=== PATIENT | male | born 1995 | race Caucasian/White ===

== ENCOUNTER 2020-11-05 05:18 | Emergency (ER) | payer MEDICAID, OTHER ==
[~2020-11-05] VITALS: Ht 170.2 cm; Wt 63.5 kg
--- NOTE | 2020-11-05 05:24 | NUR ---
PT AMBULATED TO ER WITH C/O BODYACHES, SORETHROAT, AND FEVER WITH NAUSA X 2 DAYS. PT A/O X4, NO SOB OR LABORED BREATHING. DENIES CP/PRESSURE.
--- NOTE | 2020-11-05 05:38 | NUR ---
DR. PARKER AT BEDSIDE, MSE IN PROGRESS.
--- NOTE | 2020-11-05 06:51 | NUR ---
Patient discharged to home in stable condition. A/O x4, denies any pain/discomfort upon discharge. Written and verbal after care instructions given. Patient verbalizes understanding of instructions. Stressed follow up or return to ER for worsening s/s. Steady gait.
[2020-11-05 06:52] VITALS: BP 133/72
== END 2020-11-05 06:53 | disposition home or self-care (01) ==
LOC: ER 05:26
DX: B34.9 Viral infection, unspecified (principal); Z20.822 Contact with and (suspected) exposure to COVID-19
CPT/HCPCS: 87400; A4663

== ENCOUNTER 2021-07-06 20:02 | Inpatient (IN) | payer OTHER ==
[~2021-07-06] VITALS: Ht 175.3 cm; Wt 63.5 kg
[2021-07-06] MEDS ORDERED: ONDANSETRON 4 MG/2 ML VIAL IV ONE (21:15)
[2021-07-06 21:17] LABS: HEMATOCRIT 44.2 % (36.7-47.1); MEAN CORPUSCULAR HEMOGLOBIN 28.7 uug (23.8-33.4); MEAN CORPUSCULAR VOLUME 82.9 fL (73.0-96.2); PLATELET COUNT (AUTO) 264 K/uL (152-348)
[2021-07-06 21:33] LABS: ETHANOL < 3 MG/DL (0-0)
[2021-07-06 21:37] LABS: CARBON DIOXIDE 24 mmol/L (21-32); CHLORIDE 102 mmol/L (98-107); CREATININE 1.1 mg/dL (0.6-1.3); GLUCOSE 133 mg/dL (74-106); POTASSIUM 3.5 mmol/L (3.5-5.1); UREA NITROGEN, BLOOD 19 mg/dL (7-18)
[2021-07-06 21:40] LABS: ACETAMINOPHEN < 2.0 ug/mL (10-30)
[2021-07-06] MEDS ORDERED: ONDANSETRON 4 MG/2 ML VIAL ONE (21:40)
[2021-07-06 21:42] LABS: ALANINE AMINOTRANSFERASE 35 U/L (16-63); ALKALINE PHOSPHATASE 111 U/L (50-136); ASPARTATE AMINOTRANSFERASE 13 U/L (15-37); BILIRUBIN,DIRECT 0.2 mg/dL (0.0-0.2); BILIRUBIN,TOTAL 1.1 mg/dL (0.2-1.0); LIPASE 37 U/L (73-393); TOTAL PROTEIN, SERUM 8.4 g/dL (6.4-8.2)
[2021-07-06] MEDS ORDERED: IV NS 1000 ML 1,000 ML IV ONE (21:45)
[2021-07-06] MEDS ORDERED: IOHEXOL 350 100 ML INFUS..BTL ONE (22:01)
[2021-07-06] MEDS ORDERED: SWABABLE VALVE TRANSFER SET EA MC ONE (22:01)
[2021-07-06] MEDS ORDERED: IV NORMAL SALINE 250 ML IV ONE (22:01)
[2021-07-06 22:50] LABS: *BILIRUBIN,URIN NEGATIVE (NEGATIVE); *CLARITY,URINE SLIGHTLY CLOUDY (CLEAR); *COLOR,URINE YELLOW (YELLOW); *KETONES,URINE 4+ (NEGATIVE); *UROBILINOGEN,URINE 0.2 E.U./dl (NORMAL); LEUKOCYTE ESTERASE ,URINE NEGATIVE (NEGATIVE); NITRITE, URINE NEGATIVE (NEGATIVE); PH,URINE 8.5 (5.0-8.0); UGLUCOSE NEGATIVE (NEGATIVE)
[2021-07-06 22:55] LABS: *BLOOD, URINE TRACE (NEGATIVE)
[2021-07-06 22:59] LABS: BACTERIA,URINE NONE SEEN /HPF (NONE SEEN); SQUAMOUS EPITHELIAL CELL,UR NONE SEEN /HPF (NONE SEEN); WBC,URINE NONE SEEN /HPF (0-3)
[2021-07-06 23:00] LABS: URINE AMORPHOUS PHOSPHATES MANY /HPF
[2021-07-06 23:07] LABS: *AMPHETAMINE, URINE NEGATIVE (NEGATIVE); *CANNABINOID, URINE NEGATIVE (NEGATIVE); *COCCAINE, URINE NEGATIVE (NEGATIVE); *OPIATE, URINE NEGATIVE (NEGATIVE); *PHENCYCLIDINE SCREEN,URINE NEGATIVE (NEGATIVE)
[2021-07-07] MEDS ORDERED: diphenhydrAMINE 50 MG/1 ML VIAL IV ONE (00:30)
[2021-07-07] MEDS ORDERED: METOCLOPRAMIDE HCL 10 MG/2 ML VIAL IV ONE (00:30)
[2021-07-07] MEDS ORDERED: KETOROLAC TROMETHAMINE 30 MG INJ IVP ONE (00:30)
[2021-07-07] MEDS ORDERED: KETOROLAC TROMETHAMINE 30 MG INJ ONE (00:49)
[2021-07-07] MEDS ORDERED: diphenhydrAMINE 50 MG/1 ML VIAL ONE (00:49)
[2021-07-07] MEDS ORDERED: METOCLOPRAMIDE HCL 10 MG/2 ML VIAL ONE (00:50)
[2021-07-07] MEDS ORDERED: HYDROCODONE/APAP 5-325MG TABLET PO PRN (03:45)
[2021-07-07] MEDS ORDERED: ONDANSETRON 4 MG/2 ML VIAL IV PRN (03:45)
[2021-07-07] MEDS ORDERED: MAGNESIUM HYDROXIDE 30 ML LIQUID UDC PO PRN (03:45)
[2021-07-07 05:27] LABS: HEMATOCRIT 43.1 % (36.7-47.1); MEAN CORPUSCULAR HEMOGLOBIN 29.4 uug (23.8-33.4); PLATELET COUNT (AUTO) 222 K/uL (152-348)
[2021-07-07 05:39] LABS: CARBON DIOXIDE 23 mmol/L (21-32); CHLORIDE 106 mmol/L (98-107); CHOLESTEROL 168 mg/dL (<200); GLUCOSE 101 mg/dL (74-106); HDL CHOLESTEROL 57 mg/dL (40-60); MAGNESIUM 1.9 mg/dL (1.8-2.4); POTASSIUM 3.4 mmol/L (3.5-5.1); TRIGLYCERIDES 35 MG/DL (30-150); UREA NITROGEN, BLOOD 16 mg/dL (7-18)
[2021-07-07 05:49] LABS: THYROID STIMULATING HORMONE 0.844 mIU/mL (0.358-3.740)
[2021-07-07] MEDS ORDERED: PANTOPRAZOLE SODIUM 40 MG TABLET.DR PO SCH (07:00)
[2021-07-07 09:18] VITALS: BP 132/66
[2021-07-07] MEDS: ACETAMINOPHEN 325 MG TABLET PO PRN ×2 (09:39→16:01)
[2021-07-07 11:38] VITALS: BP 131/76
[2021-07-07 16:00] VITALS: BP 124/64
[2021-07-07 20:37] VITALS: BP 121/74
[2021-07-08 00:37] VITALS: BP 125/68
[2021-07-08 04:00] VITALS: BP 100/56
[2021-07-08 06:20] LABS: HEMATOCRIT 39.8 % (36.7-47.1); MEAN CORPUSCULAR HEMOGLOBIN 29.1 uug (23.8-33.4); MEAN CORPUSCULAR VOLUME 83.2 fL (73.0-96.2); PLATELET COUNT (AUTO) 212 K/uL (152-348)
[2021-07-08 06:38] LABS: MAGNESIUM 2.3 mg/dL (1.8-2.4); PHOSPHOROUS 3.5 mg/dL (2.5-4.9); POTASSIUM 3.7 mmol/L (3.5-5.1)
[2021-07-08 11:47] VITALS: BP 109/56
== END 2021-07-08 14:12 | disposition home or self-care (01) | DRG 54 ==
LOC: ER 20:06 → TELE3 07-07 09:04
PROVIDERS: ADMIT Nurse Practitioner Acute Care; ATTEND Nurse Practitioner Acute Care
DX: G43.109 Migraine with aura, not intractable, without status migrainosus (principal); E87.2 Acidosis; G92.8 Other toxic encephalopathy; R47.81 Slurred speech; H53.8 Other visual disturbances; R29.700 NIHSS score 0; D72.828 Other elevated white blood cell count; Z20.822 Contact with and (suspected) exposure to COVID-19
CPT/HCPCS: 36415; 70450; 70496; 70551; 83605; 83690; 83735; 84100; 84443; 84484; 85025; 85730; 87040; 93005; 97161; A4663; G0378; G0480; J1200; J1885; J2405; J2765; J7040; Q9967

== ENCOUNTER 2022-03-19 22:49 | Emergency (ER) | payer MEDICAID, OTHER ==
[~2022-03-19] VITALS: Ht 172.7 cm; Wt 63.5 kg
[2022-03-19 23:27] LABS: MEAN CORPUSCULAR HEMOGLOBIN 28.2 uug (23.8-33.4); MEAN CORPUSCULAR VOLUME 83.1 fL (73.0-96.2); PLATELET COUNT (AUTO) 276 K/uL (152-348)
[2022-03-19 23:31] LABS: *BLOOD, URINE 1+ (NEGATIVE); *CLARITY,URINE CLEAR (CLEAR); *COLOR,URINE YELLOW (YELLOW); *KETONES,URINE 4+ (NEGATIVE); *UROBILINOGEN,URINE 0.2 E.U./dl (NORMAL); LEUKOCYTE ESTERASE ,URINE NEGATIVE (NEGATIVE); NITRITE, URINE NEGATIVE (NEGATIVE); PH,URINE 5.5 (5.0-8.0); UGLUCOSE NEGATIVE (NEGATIVE)
[2022-03-19 23:34] LABS: CARBON DIOXIDE 26 mmol/L (21-32); CHLORIDE 102 mmol/L (98-107); GLUCOSE 95 mg/dL (74-106); POTASSIUM 3.7 mmol/L (3.5-5.1); UREA NITROGEN, BLOOD 19 mg/dL (7-18)
[2022-03-19 23:38] LABS: *BILIRUBIN,URIN 1+ (NEGATIVE)
[2022-03-19 23:39] LABS: ALANINE AMINOTRANSFERASE 25 U/L (16-63); ALKALINE PHOSPHATASE 110 U/L (50-136); ASPARTATE AMINOTRANSFERASE 14 U/L (15-37); BILIRUBIN,DIRECT 0.2 mg/dL (0.0-0.2); BILIRUBIN,TOTAL 0.8 mg/dL (0.2-1.0); TOTAL PROTEIN, SERUM 8.1 g/dL (6.4-8.2)
[2022-03-19 23:40] LABS: ACETAMINOPHEN < 10.0 ug/mL (10-30)
[2022-03-19 23:42] LABS: RBC,URINE 0-3 /HPF (0-3); WBC,URINE NONE SEEN /HPF (0-3)
[2022-03-19 23:43] LABS: BACTERIA,URINE NONE SEEN /HPF (NONE SEEN); ETHANOL < 3 MG/DL (0-0); SQUAMOUS EPITHELIAL CELL,UR FEW /HPF (NONE SEEN)
[2022-03-19 23:45] LABS: *AMPHETAMINE, URINE NEGATIVE (NEGATIVE); *CANNABINOID, URINE NEGATIVE (NEGATIVE); *COCCAINE, URINE NEGATIVE (NEGATIVE); *PHENCYCLIDINE SCREEN,URINE NEGATIVE (NEGATIVE)
--- NOTE | 2022-03-19 23:54 | NUR ---
Pt medically cleared by Dr. Morales. Called [facility] for psych eval.
[2022-03-20] MEDS ORDERED: LORAZEPAM 1 MG TABLET ONE (01:42)
[2022-03-20] MEDS ORDERED: LORAZEPAM 0.5 MG TABLET PO ONE (01:45)
[2022-03-20] MEDS ORDERED: LORA-259 PO (02:24)
--- NOTE | 2022-03-20 02:44 | NUR ---
Patient discharged to home in stable condition. Written and verbal after care instructions given. Patient verbalizes understanding of instructions. Stressed follow up or return to ER for worsening s/s.
[2022-03-20 02:45] VITALS: BP 142/111
== END 2022-03-20 02:45 | disposition home or self-care (01) ==
LOC: ER 22:49
DX: F41.9 Anxiety disorder, unspecified (principal); R03.0 Elevated blood-pressure reading, without diagnosis of hypertension; Z20.822 Contact with and (suspected) exposure to COVID-19
CPT/HCPCS: 36415; 85025; A4663; G0480